=== PATIENT | female | born 1985 | race Caucasian/White ===

== ENCOUNTER → 2019-01-26 | Outpatient (REF) | payer OTHER | LOC: M LAB LCGH 12:06 | DX: Z12.4 Encounter for screening for malignant neoplasm of cervix (principal) ==

== ENCOUNTER → 2019-01-31 | Outpatient (REF) | payer OTHER | LOC: M LAB LCGH 12:06 | PROVIDERS: ATTEND Family Medicine | DX: N63.0 Unspecified lump in unspecified breast (principal) ==

== ENCOUNTER → 2023-11-09 | Outpatient (CLI) | payer OTHER ==
[~2023-11-09] MED LIST: BUPR-597 PO; FLOM0.4C39 PO; HYDR50CA2 PO; PROBCAP14 PO; RA M10TA PO; VITMTA PO; [UNRECOGNIZED DRUG - OTHER] PO
== END ==
LOC: M PLAIMG 10:48
PROVIDERS: ATTEND Urology
DX: N20.0 Calculus of kidney (principal)